=== PATIENT | male | born 1960 | race African-American/Black ===

== ENCOUNTER 2022-01-09 00:28 | Inpatient (IN) | payer MEDICAID ==
[~2022-01-09] VITALS: Ht 188 cm; Wt 108.1 kg
[2022-01-09] MEDS ORDERED: PIPERACILLIN-TAZO 4.5GM 100 ML IV ONE (08:45)
[2022-01-09] MEDS ORDERED: HYDROmorphone HCL 2 MG/ML VL/or syr IV ONE (08:45)
[2022-01-09] MEDS ORDERED: SODIUM CHLORIDE 0.9% 1,000 ML IV ONE (08:45)
[2022-01-09] MEDS ORDERED: SODIUM CHLORIDE 0.9% 500 ML IV ONE (08:45)
[2022-01-09] MEDS ORDERED: ONDANSETRON HCL 4 MG/2 ML VIAL IV ONE (08:45)
[2022-01-09 09:11] LABS: Basophils # (auto) 0.1 10 ^3/uL (0-0.2); Eosinophils # (auto) 0.1 10 ^3/uL (0-0.8); Hemoglobin 12.7 g/dL (13.5-17.5); Lymphocytes # (auto) 1.5 10 ^3/uL (0.4-5.4)
[2022-01-09 09:13] LABS: Basophils % (auto) 0.7 % (0.0-2.0); Eosinophils % (auto) 0.5 % (0.0-7.0); Hematocrit 38.5 % (41.0-53.0); Lymphocytes % (auto) 9.2 % (10.0-50.0); Mean Corpuscular Hemoglobin 23.9 pg (28.0-32.0); Mean Corpuscular Volume 72.2 fL (80.0-100.0); Monocytes # (auto) 1.3 10 ^3/uL (0-1.3); Neutrophils # (auto) 12.9 10 ^3/uL (1.6-8.6); Neutrophils % (auto) 81.6 % (37.0-80.0); Red Blood Cells 5.33 10^6/uL (4.5-5.90); Red Cell Distribution Width 15.9 % (11.8-14.3); White Blood Cell 15.8 10^3/uL (4.4-10.8)
[2022-01-09 09:26] LABS: INR 1.17 (0.9-1.15); Partial Thromboplastin Time 28.7 sec (23.6-33.0)
[2022-01-09 09:30] LABS: Albumin 3.3 g/dL (3.4-5.0); Calcium 8.4 mg/dL (8.5-10.1); Magnesium 2.6 mg/dL (1.6-2.6); Potassium 3.2 mmol/L (3.5-5.1)
[2022-01-09 09:33] LABS: BUN/Creatinine Ratio 11.1; Total Protein 7.6 g/dL (6.4-8.2)
[2022-01-09] MEDS ORDERED: IOHEXOL 300 MG/ML 100ML BOTTLE IJ ONE (10:42)
[2022-01-09] MEDS ORDERED: NITROGLYCERIN 0.4 MG SL TAB SL PRN (13:45)
[2022-01-09] MEDS ORDERED: ONDANSETRON HCL 4 MG/2 ML VIAL IV PRN (13:45)
[2022-01-09] MEDS ORDERED: MORPHINE SULFATE INJ 2 MG/ml SYRG IV PRN ×3 (13:45→21:15)
[2022-01-09 15:49] VITALS: BP 135/85
[2022-01-09] MEDS ORDERED: POTASSIUM CHL 20 Meq TABLET PO ONE (16:30)
[2022-01-09 17:00] VITALS: BP 135/85
[2022-01-09] MEDS ORDERED: HYDROcodone-ACET 5/325MG TAB PO PRN (21:15)
[2022-01-09] MEDS ORDERED: hydrALAZINE HCL 20 MG/ML VL IV PRN (21:15)
[2022-01-09] MEDS ORDERED: ACETAMINOPHEN 325 MG TAB PO PRN (21:15)
[2022-01-09] MEDS ORDERED: DOCUSATE SOD 100 MG CAP PO PRN (21:15)
[2022-01-09] MEDS ORDERED: LORazepam 0.5 MG TAB PO PRN (21:15)
[2022-01-09 22:00] VITALS: BP 121/75
[2022-01-09 22:33] LABS: INR 1.23 (0.9-1.15); Partial Thromboplastin Time 30.2 sec (23.6-33.0)
[2022-01-09 22:36] LABS: Magnesium 2.4 mg/dL (1.6-2.6); Phosphorus 2.7 mg/dL (2.5-4.90)
[2022-01-10 04:12] LABS: Urine Bacteria NONE SEEN /hpf (None Seen); Urine Blood Negative /uL (Negative); Urine WBC 5 /hpf (0 - 3)
[2022-01-10 04:15] LABS: Alcohol, Urine < 3.0 mg/dL (0-10); Amphetamine Screen, Urine POSITIVE (NEGATIVE); Barbiturate Scree,Urine NEGATIVE (NEGATIVE); Benzodiazephine Screen, Urine NEGATIVE (NEGATIVE); Cannabinoid Screen, Urine POSITIVE (NEGATIVE); Cocaine Screen, Urine NEGATIVE (NEGATIVE); Opiate Scree,Urine NEGATIVE (NEGATIVE); Phencyclidine Screen, Urine NEGATIVE (NEGATIVE); Protein, Urine 28.4 mg/dL (0.0-11.9)
[2022-01-10 05:00] VITALS: BP 145/82
[2022-01-10 07:04] LABS: Basophils # (auto) 0 10 ^3/uL (0-0.2); Eosinophils # (auto) 0.1 10 ^3/uL (0-0.8); Hemoglobin 12.6 g/dL (13.5-17.5); Monocytes # (auto) 1.5 10 ^3/uL (0-1.3)
[2022-01-10 07:06] LABS: Basophils % (auto) 0.2 % (0.0-2.0); Eosinophils % (auto) 0.8 % (0.0-7.0); Hematocrit 38.5 % (41.0-53.0); Lymphocytes # (auto) 1.6 10 ^3/uL (0.4-5.4); Lymphocytes % (auto) 11.4 % (10.0-50.0); Mean Corpuscular Hemoglobin 23.8 pg (28.0-32.0); Mean Corpuscular Hgb Conc. 32.8 g/dL (32.0-36.0); Mean Corpuscular Volume 72.7 fL (80.0-100.0); Monocytes % (auto) 10.4 % (0.0-12.0); Neutrophils # (auto) 10.9 10 ^3/uL (1.6-8.6); Neutrophils % (auto) 77.2 % (37.0-80.0); Red Cell Distribution Width 16.2 % (11.8-14.3); White Blood Cell 14.2 10^3/uL (4.4-10.8)
[2022-01-10 07:29] LABS: INR 1.19 (0.9-1.15); Partial Thromboplastin Time 31.6 sec (23.6-33.0)
[2022-01-10 08:00] VITALS: BP 148/95
[2022-01-10 09:04] LABS: Albumin 2.9 g/dL (3.4-5.0); BUN/Creatinine Ratio 9.7; Bilirubin, Total 0.9 mg/dL (0.2-1.0); CRP High Sensitivity 13.4 mg/dL (< 0.3); Calcium 8.8 mg/dL (8.5-10.1); Magnesium 2.7 mg/dL (1.6-2.6); Phosphorus 2.5 mg/dL (2.5-4.90); Potassium 3.9 mmol/L (3.5-5.1); Total Protein 7.6 g/dL (6.4-8.2)
[2022-01-10 09:13] LABS: Thyroid Stimulating Hormone 0.68 uIU/mL (0.358-3.74)
[2022-01-10] MEDS: FAMOTIDINE (10MG/ML) 2ML VL IV SCH (10:00)
[2022-01-10] MEDS: ENOXAPARIN SOD 40 MG/0.4 ML SYRINGE SC SCH (11:23)
[2022-01-10] MEDS ORDERED: cefTRIAXone 1GM/50ML D5W 50 ML IV ONE (11:30)
[2022-01-10] MEDS ORDERED: CLINDAMYCIN 300MG IV 50 ML IV ONE (11:30)
[2022-01-10 12:00] VITALS: BP 147/94
[2022-01-10 16:00] VITALS: BP 122/75
[2022-01-10] MEDS: CLINDAMYCIN 300MG IV 50 ML IV SCH (20:14)
[2022-01-10 22:00] VITALS: BP 120/66
[2022-01-11] MEDS: CLINDAMYCIN 300MG IV 50 ML IV SCH ×3 (04:42→20:14)
[2022-01-11 05:00] VITALS: BP 124/67
[2022-01-11 09:00] VITALS: BP 151/97
[2022-01-11] MEDS: cefTRIAXone 1GM/50ML D5W 50 ML IV SCH (09:16)
[2022-01-11] MEDS: FAMOTIDINE (10MG/ML) 2ML VL IV SCH (09:16)
[2022-01-11] MEDS: ENOXAPARIN SOD 40 MG/0.4 ML SYRINGE SC SCH (09:17)
[2022-01-11 13:00] VITALS: BP 145/98
[2022-01-11 17:00] VITALS: BP 127/75
[2022-01-11 22:00] VITALS: BP 120/75
[2022-01-12] MEDS: CLINDAMYCIN 300MG IV 50 ML IV SCH (04:21)
[2022-01-12 05:00] VITALS: BP 132/79
[2022-01-12 09:00] VITALS: BP 141/87
[2022-01-12] MEDS: cefTRIAXone 1GM/50ML D5W 50 ML IV SCH (09:00)
[2022-01-12] MEDS ORDERED: HYDR-4902 PO (09:59)
[2022-01-12] MEDS ORDERED: CEPH500C PO (09:59)
[2022-01-12] MEDS ORDERED: CLIN-203 PO (09:59)
[2022-01-12] MEDS: ENOXAPARIN SOD 40 MG/0.4 ML SYRINGE SC SCH (10:00)
[2022-01-12 10:47] VITALS: BP 141/87
== END 2022-01-12 11:20 | disposition home or self-care (01) | DRG 383 ==
LOC: ER 00:28 → OVERFLOW 13:34 → EAST 15:05
PROVIDERS: ADMIT Hospitalist; ATTEND Family Medicine
DX: L03.116 Cellulitis of left lower limb (principal); E44.1 Mild protein-calorie malnutrition; E87.6 Hypokalemia; B35.1 Tinea unguium; D64.9 Anemia, unspecified; E78.5 Hyperlipidemia, unspecified; N18.31 Chronic kidney disease, stage 3a; Z20.822 Contact with and (suspected) exposure to COVID-19; Z68.30 Body mass index [BMI] 30.0-30.9, adult; Z71.6 Tobacco abuse counseling
CPT/HCPCS: 36415; 71045; 73701; 80053; 80061; 80307; 81001; 82550; 82728; 83036; 83615; 83690; 83735; 83880; 84100; 84156; 84300; 84439; 84443; 84484; 84550; 85025; 85379; 85610; 85652; 85730; 86141; 87040; 87086; 93005; 93306; 93925; 93971; 96360; 96361; G0378; J0696; J2543; J3490